=== PATIENT | female | born 1950 | race Caucasian/White ===

== ENCOUNTER 2017-02-09 09:09 | Day surgery (SDC) | payer MEDICARE, BC ==
[~2017-02-09 09:09] MED LIST: Lactated Ringers 1,000 ML IV SCH
[2017-02-09] MEDS ORDERED: Propofol 200 MG/20 ML SDV ONE ×2 (10:48→11:47)
[2017-02-09] MEDS ORDERED: fentaNYL 100 MCG/2 ML SDV ONE (10:48)
[2017-02-09 13:55] VITALS: BP 113/62
--- NOTE | 2017-02-09 14:21 | OR ---
PREOPERATIVE DIAGNOSIS: History of polyps. POSTOPERATIVE DIAGNOSIS: Essentially normal colonoscopic exam. PROCEDURE PROPOSED: Total flexible colonoscopy. PROCEDURE DONE: Total flexible colonoscopy. INDICATION: This is a 66-year-old female, who comes in for colonic surveillance due to history of polyps. This should be about her 3rd colonoscopy. She had polyps on each of the 2 previous colonoscopies. TECHNIQUE: The patient was brought to the endoscopy suite, placed in left lateral decubitus position. She was sedated with propofol per [employer]. The flexible video colonoscope was then passed transanally and under visualization advanced to the cecum. Examination revealed normal ascending, transverse, descending, sigmoid, and rectal colon. There was no evidence of any diverticulosis, polyps, colitis, or any other abnormalities. The scope was then withdrawn. The patient tolerated the procedure well. IMPRESSION: Essentially normal colonoscopic exam. PLAN: The patient is reassured. I felt that she should continue with colonic surveillance every 5 years hereafter due to her history of polyps. SCM: 02/09/2017 12:05:47 MODL: 02/09/2017 14:12:32 /[id number]
== END 2017-02-09 13:05 | disposition home or self-care (01) ==
LOC: VM.SDS 09:09
PROVIDERS: ATTEND Surgery
DX: Z12.11 Encounter for screening for malignant neoplasm of colon (principal); Z86.010 Personal history of colon polyps; I12.9 Hypertensive chronic kidney disease with stage 1 through stage 4 chronic kidney disease, or unspecified chronic kidney disease; N18.3 Chronic kidney disease, stage 3 (moderate); E78.5 Hyperlipidemia, unspecified; E78.00 Pure hypercholesterolemia, unspecified; Z98.890 Other specified postprocedural states; R73.9 Hyperglycemia, unspecified; Z79.82 Long term (current) use of aspirin; Z79.899 Other long term (current) drug therapy; Z98.84 Bariatric surgery status; Z87.891 Personal history of nicotine dependence
CPT/HCPCS: G0105; J2704; J3010; J7120

== ENCOUNTER 2022-03-12 11:58 | Day surgery (SDC) | payer MEDICARE, BC ==
[2022-03-12] MEDS: Lactated Ringers 1,000 ML IV SCH (12:37)
[2022-03-12] MEDS ORDERED: Propofol 200 MG/20 ML SDV ONE (13:22)
[2022-03-12] MEDS ORDERED: Midazolam 1 MG/ML 2 ML SDV ONE (13:22)
[2022-03-12] MEDS ORDERED: fentaNYL 100 MCG/2 ML SDV ONE (13:22)
[2022-03-12 14:32] VITALS: BP 102/69; PULSE 57
== END 2022-03-12 14:53 | disposition home or self-care (01) ==
LOC: VM.SDS 11:58
PROVIDERS: ATTEND Family Medicine
DX: Z12.11 Encounter for screening for malignant neoplasm of colon (principal); D12.3 Benign neoplasm of transverse colon; I12.9 Hypertensive chronic kidney disease with stage 1 through stage 4 chronic kidney disease, or unspecified chronic kidney disease; M85.80 Other specified disorders of bone density and structure, unspecified site; E78.00 Pure hypercholesterolemia, unspecified; N18.31 Chronic kidney disease, stage 3a; E66.01 Morbid (severe) obesity due to excess calories; R73.9 Hyperglycemia, unspecified; Z68.41 Body mass index [BMI] 40.0-44.9, adult; Z80.0 Family history of malignant neoplasm of digestive organs; Z98.890 Other specified postprocedural states; Z79.899 Other long term (current) drug therapy; Z87.891 Personal history of nicotine dependence
CPT/HCPCS: 00811; J2250; J2704; J3010; J7120